=== PATIENT | female | born 1955 | race Hispanic/Latino ===

== ENCOUNTER → 2019-04-24 | Day surgery (SDC) | payer MEDICARE ==
[2019-04-23 15:09] LABS: BASOPHILS # (AUTO) 0.1 (0.0-0.1); BASOPHILS % 0.7 % (0.0-1.0); EOSINOPHILS # (AUTO) 0.1 (0.0-0.4); EOSINOPHILS % 1.6 % (0.0-6.0); HEMATOCRIT 42.3 % (34.2-44.1); HEMOGLOBIN 13.1 g/dL (12.0-16.0); LYMPHOCYTES # (AUTO) 2.8 (1.0-3.2); LYMPHOCYTES % 31.1 % (18.0-39.1); MEAN CORPUSCULAR HEMOGLOBIN 29.8 pg (28-32); MEAN CORPUSCULAR VOLUME 96.1 fL (81-99); MONOCYTES # (AUTO) 0.7 (0.2-0.8); MONOCYTES % 7.9 % (4.4-11.3); NEUTROPHILS # (AUTO) 5.2 (2.1-6.9); NEUTROPHILS % 58.1 % (38.7-80.0); PLATELET COUNT 221 x10e3/uL (140-360); RED CELL DISTRIBUTION WIDTH 13.2 % (11.7-14.4)
[2019-04-23 15:26] LABS: ALBUMIN 4.3 g/dL (3.5-5.0); ALBUMIN/GLOBULIN RATIO 1.3 (0.8-2.0); ANION GAP 15.6 mmol/L (8-16); CALCIUM 9.7 mg/dL (8.4-10.2); CREATININE, SERUM 1.11 mg/dL (0.57-1.11); POTASSIUM 3.6 mmol/L (3.5-5.1)
--- NOTE | 2019-04-23 15:35 | Diagnostic Imaging Report ---
Chest, PA and lateral. History: Preoperative evaluation for stress urinary incontinence. Comparison: None available. Discussion: The cardiomediastinal silhouette and pulmonary vasculature are within normal limits. The lungs are clear without evidence of consolidation or effusion. There are no acute osseous abnormalities. IMPRESSION: No radiographic evidence of acute cardiopulmonary abnormality. Signed by: Otto Harris MD on 04/23/2019 3:32 PM
[~2019-04-24] MED LIST: ATORVASTATIN CA20 MG PO; BUPIVACAINE 0.25% 30ML SDV INJ ONE; BUPIVACAINE 0.25%/EPI 30ML SDV INJ ONE; CEFAZOLIN SOD 1 GM/NS 50ML 100 ML IV ONE; DEXAMETHASONE SOD PHOS INJ 4 MG/ML VIAL ONE; EPHEDRINE SULFATE INJ 50 MG/10 ML SYR ONE; ESTROGENS CONJUGATED VAGINAL CR 45 GM TUBE PV ONE; FENTANYL CITRATE/PF 100MCG/2 ML INJ ONE; KETOROLAC TROMETHAMINE 30 MG/ML VIAL ONE; LIDOCAINE HCL 2% LOCAL INJ 5 ML SDV VIAL INJ ONE; LISINOPRIL10 MG PO; MIDAZOLAM HCL 2 MG/2 ML VIAL ONE; ONDANSETRON HCL INJ 2MG/ML 2ML 2 MG/ML VIAL ONE; PAROXETINE HCL10 MG PO; PROPOFOL IV EMULSION 10 MG/ML 20 ML VIAL ONE; SEVOFLURANE INHAL SOLN 250 ML PEN BTL ONE; VITAMIN D2 PO
--- OUTSIDE RECORDS SUMMARY | 2019-04-24 05:22 | XMS REPORT ---
Author [facility] Address Unknown Phone Unavailable Care Team Providers Care Submarine Operator Name Role Phone KEN MASSEY Unavailable Unavailable Problems This patient has no known problems. Allergies, Adverse Reactions, Alerts This patient has no known allergies or adverse reactions. Medications This patient has no known medications. Encounters Start Date/Time End Date/Time Encounter Type Admission Type Attending Clinicians Care Facility Care Department Encounter ID 2018-11-20 14:39:00 2018-11-20 14:39:00 Outpatient [id number] Results Test Description Test Time Test Comments Text Results Atomic Results Result Comments CHEST 2 VIEWS 2019-04-23 15:31:00 [place] [id number] Patient Name: JM EASLEY MR #: [id number] : 1955 Age/Sex: 63/F Req #: [id number] Adm Physician: Ordered by: KEN MASSEY MD Report #: [id number] Location: OR Room/Bed: Procedure: [id number] DX/CHEST 2 VIEWS Exam Date: 04/23/19 Exam Time: 1500 REPORT STATUS: Signed Chest, PA and lateral. History: Preoperative evaluation for stress urinary incontinence. Comparison: None available. Discussion: The cardiomediastinal silhouette and pulmonary vasculature are within normal limits. The lungs are clear without evidence of consolidation or effusion. There are no acute osseous abnormalities. IMPRESSION: No radiographic evidence of acute cardiopulmonary abnormality. Signed by: Otto Marte MD on 04/23/2019 3:32 PM Dictated By: OTTO MARTE MD 153 Transcribed By: DIANN on 04/23/191531 COPY TO: KEN MASSEY MD SCR MAMM BILATERAL VIPUL CAD DIGITAL 2019-04-10 16:06:07 - SCR MAMM BILATERAL VIPUL CAD DIGITALBILATERAL DIGITAL SCREENING MAMMOGRAM 3D/2D WITH CAD: 04/09/2019CLINICAL: Asymptomatic. Digital breast tomosynthesis was performed in addition to routine CC and MLO views. Current mammographic images were evaluated by either a [employer] M-Vu or a [employer] ImageChecker CAD (computer aided detection system). No prior exams were available for comparison. There are sc attered fibroglandular tissues in both breasts. No suspicious mass, architectural distortion, malignant type calcification, or lymph node abnormality detected. IMPRESSION: NEGATIVEThere is no mammographic evidence of malignancy. Resume annual screening mammography in one year. Marcelo olvera/penrad:04/10/2019 16:06:07 Furnace Unloader: Noy ORONA, [facility]-FWletter sent: BIRADS 1-2 Normal Mammogram BI-RADS: 1 Negative
[2019-04-24 10:40] VITALS: BP 146/82
--- NOTE | 2019-04-24 14:32 | Operative Report ---
DATE OF PROCEDURE: SURGEON: Lissette Hernandez MD PREOPERATIVE DIAGNOSIS: Genuine stress incontinence. POSTOPERATIVE DIAGNOSIS: Genuine stress incontinence. PROCEDURES: Transobturator tape and cystoscopy. COMPLICATIONS: None. ESTIMATED BLOOD LOSS: Minimal. DESCRIPTION OF PROCEDURE: The patient was taken to the OR. General anesthesia was induced. She was prepped and draped in a sterile fashion, placed in dorsal lithotomy position. A right angle retractor was placed inside the vagina and Freeman catheter was placed inside the bladder for drainage. A subvaginal tissue anteriorly was injected with Marcaine with epinephrine 0.25%. Two Allis clamps applied on the anterior vaginal wall, one at the external urethral meatus and the other one is at the level of the UVJ. Vaginal skin incision was made at the level of the mid urethra using scalpel and subvaginal tissue dissected off the urethra using Metzenbaum scissors using the push spread technique towards the inferior pubic ramus. Following this, entry points were made at the level of the clitoris and intercrural line using stab wounds with a scalpel and the transobturator tape using the trocar was inserted into the entry points felt with the finger at the inferior pubic ramus and guided to the outside of the wound. A sling was threaded on the trocar, the trocar was withdrawn. The same was done on the other side and transobturator tape sling was laid down flat at the level of the midurethra. Cystoscopy was performed and showed normal bladder and urethra. The plastic cover was removed off the tape. The vagina was closed with interlocking stitches of Vicryl 2-0. Excess tape was trimmed off at the level of the skin and the vagina, and the skin was approximated using Dermabond. The patient tolerated the procedure well. Lap, instruments, and needle counts were correct at the end of the procedure. Lissette Hernandez MD DD/ZAINABL /[id number]
== END | disposition home or self-care (01) ==
LOC: OR 05:21
PROVIDERS: ATTEND Obstetrics & Gynecology
DX: N39.3 Stress incontinence (female) (male) (principal); I10 Essential (primary) hypertension; E78.5 Hyperlipidemia, unspecified; F41.8 Other specified anxiety disorders; F17.210 Nicotine dependence, cigarettes, uncomplicated; Z01.810 Encounter for preprocedural cardiovascular examination; Z01.812 Encounter for preprocedural laboratory examination; Z01.818 Encounter for other preprocedural examination
CPT/HCPCS: 36415; 57288; 71046; 80053; 85025; 93005; C1781; J0690; J1100; J1885; J2001; J2250; J2405; J2704; J3010